=== PATIENT | female | born 1995 | race African-American/Black ===

== ENCOUNTER 2017-04-03 23:07 | Emergency (ER) | payer BC, OTHER ==
[~2017-04-03] VITALS: Ht 167.6 cm; Wt 129.9 kg
[2017-04-03 23:16] VITALS: Ht 167.6 cm; Wt 129.9 kg
[2017-04-03 23:55] LABS: BUN/CREATININE RATIO 6.5 (10-20); CALCIUM 8.7 mg/dl (8.5-10.1); CREATININE 0.69 mg/dl (0.60-1.20); POTASSIUM 3.4 mmol/L (3.5-5.1)
[2017-04-04] MEDS ORDERED: ONDANSETRON 4MG OD TAB ONE (03:02)
[2017-04-04 07:35] VITALS: TEMP 36.7
[2017-04-04 08:53] VITALS: BP 139/112; PULSE 105; O2SAT 98
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
== END 2017-04-04 08:55 | disposition home or self-care (01) ==
LOC: C.EDC 23:11 → C.EDA 04-04 08:55
DX: F10.920 Alcohol use, unspecified with intoxication, uncomplicated (principal)